=== PATIENT | male | born 1955 | race Hispanic/Latino ===

== ENCOUNTER → 2020-01-27 | Outpatient (CLI) | payer MEDICARE, OTHER ==
--- NOTE | 2020-01-27 14:26 | Diagnostic Imaging Report ---
EXAM: Right upper quadrant abdominal ultrasound INDICATION: Alcoholic cirrhosis of the liver with ascites. COMPARISON: None. TECHNIQUE: Transverse and longitudinal images of the right upper quadrant abdomen were obtained FINDINGS: Liver: Size: 14.4 cm in the right midclavicular line, normal Appearance: Nodular contour to the liver. Mass: No focal masses Gallbladder: Cholelithiasis. No distention, pericholecystic fluid, wall thickening, or reported sonographic Kuhn's sign. Gallbladder wall measures 0.3 cm. Bile Ducts: Intrahepatic Ducts: No dilatation Extrahepatic Ducts: Common bile duct measures 0.3 cm, no dilatation Pancreas: Limited evaluation. Kidney: The right kidney measures 10.9 cm without evidence of hydronephrosis or stone. Vessels: Aorta: Limited evaluation. Inferior Vena Cava: Limited evaluation. Main Portal Vein: 0.9 cm, normal size with hepatopetal flow. Free Fluid: Moderate to large volume ascites. IMPRESSION: Cirrhotic liver with moderate to large volume ascites. Cholelithiasis without evidence of cholecystitis. Signed by: Dr. Gordo Kelly MD on 01/27/2020 2:22 PM
== END ==
LOC: US 13:14
PROVIDERS: ATTEND Family Medicine
DX: K70.31 Alcoholic cirrhosis of liver with ascites (principal)
CPT/HCPCS: 76705

== ENCOUNTER → 2020-02-02 | Outpatient (CLI) | payer MEDICARE, OTHER ==
[~2020-02-02] MED LIST: ALBUMIN 25% 12.5GM 50ML 150 ML IV ONE; ALBUMIN 25% 12.5GM 50ML 50 ML IV ONE; IOPAMIDOL 370 MG/ML 200 ML INFUS..BTL INJ ONE; SODIUM CHLORIDE 0.9% 50ML 50 ML ONE
[2020-02-02 13:11] LABS: HEMOGLOBIN 17.3 g/dL (14.0-18.0)
[2020-02-02 13:23] LABS: INR 0.97; PROTHROMBIN TIME 13.4 seconds (11.9-14.5)
[2020-02-02 13:24] LABS: PARTIAL THROMBOPLASTIN TIME 34.6 seconds (23.8-35.5)
[2020-02-02 14:08] LABS: CREATININE, SERUM 1.39 mg/dL (0.72-1.25)
[2020-02-02 14:47] LABS: BODY FLUID APPEARANCE CLOUDY; BODY FLUID COLOR STRAW; BODY FLUID TYPE PERITONEAL
--- NOTE | 2020-02-02 14:49 | Diagnostic Imaging Report ---
HISTORY : Symptomatic ascites. Technique/findings: Informed written consent was obtained. Discussion of risks, benefits, and alternatives were made with the patient. The patient expressed understanding and agreed to proceed. A universal timeout was performed prior to starting the procedure. Initial ultrasound images demonstrate large volume of ascites. A pocket of fluid was identified in the left lower quadrant of the abdomen. This area was marked. The area was prepped and draped in the usual sterile fashion. 1% lidocaine was applied to the skin and deep soft tissues. Color ultrasound was used to assess for any vessels within the vicinity of the planned trajectory of the one-step, a image was saved. A 5 Italian one-step catheter was inserted and removed from the peritoneal space and approximately 7.3 liters of clear yellow ascitic fluid was aspirated from the abdomen. Specimens were collected for the lab. There were no immediate complications. Impression: Successful ultrasound guided paracentesis with aspiration of 7.3 liters of fluid. Signed by: Micheal Lowery MD on 02/02/2020 2:46 PM
[2020-02-02 15:20] LABS: RBC,BODY FLUID 149 cells/uL; WBC,BODY FLUID 56 cells/uL
[2020-02-02 15:38] LABS: BASOPHILS,BODY FLUID 41 %; LYMPHOCYTES,BODY FLUID 41 %; MONO/MACROPHG,BODY FLUID 18 %; NEUTROPHILS,BODY FLUID 0 %
--- NOTE | 2020-02-02 15:39 | Diagnostic Imaging Report ---
CT of the abdomen and pelvis with contrast TECHNIQUE: CT of the abdomen and pelvis WITH intravenous contrast and WITHOUT oral contrast. Dose modulation, iterative reconstruction, and/or weight-based adjustment of the mA/kV was utilized to reduce the radiation dose to as low as reasonably achievable. IV CONTRAST: 100 mL of Isovue-370 ORAL CONTRAST: None RADIATION DOSE: Total DLP: 288 mGy*cm COMPLICATIONS: None INDICATION: ^[id number] ^1430 ^ALCOHOLIC CIRRHOSIS OF LIVER. COMPARISON: None. FINDINGS: LOWER THORAX: Partially visualized right chest demonstrates a large right pleural effusion with collapse and atelectasis of the right lower lobe and right middle lobe. Left lung base is clear. HEPATOBILIARY: No focal hepatic lesions. Cirrhotic liver morphology is noted with nodular contours and hypertrophy of the left hepatic lobe. Gallbladder contains cholesterol stones. Negative for distention or wall thickening. No biliary ductal dilatation. Main portal vein and right and left portal veins are patent. Hepatic veins are patent. SPLEEN: No splenomegaly. PANCREAS: No focal masses or ductal dilatation. ADRENALS: Right adrenal gland is unremarkable. A fat-containing left adrenal gland lesion is noted measuring approximately 8.5 x 6.6 cm. KIDNEYS/URETERS: No hydronephrosis, stones, or masses. PELVIC ORGANS/BLADDER: Urinary bladder is decompressed. Prostate is within normal limits for size. PERITONEUM/RETROPERITONEUM: Trace residual free fluid is noted in the perihepatic space and upper abdomen. Negative for pneumoperitoneum. Left fat-containing inguinal hernia is noted. LYMPH NODES: No lymphadenopathy. VESSELS: Negative for abdominal aortic aneurysm. Moderate scattered calcified atherosclerotic changes of the abdominal aorta are noted. GI TRACT: Visualized bowel loops are not dilated. Stomach and colon are decompressed limiting evaluation. Negative for obstruction. Normal appendix is noted. BONES AND SOFT TISSUES: No acute osseous abnormality. Mild to moderate multilevel degenerative changes of the thoracolumbar spine are noted. No suspicious lytic or blastic lesion.. IMPRESSION: 1. Cirrhotic liver morphology with trace residual ascites. 2. 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 These findings were discussed with Ashtyn FABIAN who discussed with Dr. Saldivar. Patient had already left at that time however was asymptomatic without shortness of breath or chest pain. Patient to follow-up with referring practitioner for possible thoracentesis. 3. 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 Given size consider surgical consultation. 4. Cholelithiasis. 5. Fat-containing left inguinal hernia. Signed by: Micheal Lowery MD on 02/02/2020 3:36 PM
== END ==
LOC: US 12:47
PROVIDERS: ATTEND Internal Medicine Gastroenterology
DX: K70.30 Alcoholic cirrhosis of liver without ascites (principal)
CPT/HCPCS: 36415; 49083; 74177; 82565; 84520; 85014; 85049; 85610; 85730; 87070; 87205; 89051; Q9967; 88112; 88305

== ENCOUNTER → 2020-02-10 | Outpatient (CLI) | payer MEDICARE, OTHER ==
[~2020-02-10] MED LIST changes: +ALBUMIN 25% 12.5GM 50ML 0 ML IV ONE; -ALBUMIN 25% 12.5GM 50ML 150 ML IV ONE; -ALBUMIN 25% 12.5GM 50ML 50 ML IV ONE; -IOPAMIDOL 370 MG/ML 200 ML INFUS..BTL INJ ONE; -SODIUM CHLORIDE 0.9% 50ML 50 ML ONE
--- NOTE | 2020-02-10 12:37 | Diagnostic Imaging Report ---
ADDENDUM #1 ADDENDUM: In the body of the report: Instead of saying "negative for large effusion", it should say negative for large right pneumothorax. Signed by: Micheal Lowery MD on 02/10/2020 12:51 PM ORIGINAL REPORT TECHNIQUE: Frontal view of the chest. INDICATION: ^thoracentesis ^[id number] ^1215 COMPARISON: CT dated 02/02/2020. DISCUSSION: Limited evaluation due to portable technique. Lines and hardware: None Heart and mediastinum: Obscured. Thoracic aorta is mildly tortuous. Lungs and pleura: Complete opacification of the right hemithorax is again noted. Negative for large effusion. Left lung is grossly clear. Soft tissues and bones: No acute abnormality. IMPRESSION: 1. Negative for right pneumothorax. Near-complete opacification of the right hemithorax with a large right pleural effusion is noted. Signed by: Micheal Lowery MD on 02/10/2020 12:34 PM
--- NOTE | 2020-02-10 12:44 | Diagnostic Imaging Report ---
HISTORY : Symptomatic ascites. Technique/findings: Informed written consent was obtained. Discussion of risks, benefits, and alternatives were made with the patient. The patient expressed understanding and agreed to proceed. A universal timeout was performed prior to starting the procedure. Initial ultrasound images demonstrate moderate volume of ascites. A pocket of fluid was identified in the left lower quadrant of the abdomen. This area was marked. The area was prepped and draped in the usual sterile fashion. 1% lidocaine was applied to the skin and deep soft tissues. Color ultrasound was used to assess for any vessels within the vicinity of the planned trajectory of the one-step, a image was saved. A 5 Serbian one-step catheter was inserted and removed from the peritoneal space and approximately 3.1 liters of yellow ascitic fluid was aspirated from the abdomen. Specimens were collected for the lab. There was a small soft tissue hematoma at the access site. Manual pressure was held for about 10 minutes. No further bleeding was noted. Impression: Successful ultrasound guided paracentesis with aspiration of 3.1 liters of fluid. Signed by: Micheal Lowery MD on 02/10/2020 12:40 PM
--- NOTE | 2020-02-10 12:45 | Diagnostic Imaging Report ---
Ultrasound guided right thoracentesis. Clinical History: Right large pleural effusion. Modality: Ultrasound. Sedation: None. Creping Machine Operator: Micheal Lowery M.D. Custody Officer: None. Estimated Blood Loss: 1cc Specimen: 650 cc of [ fluid. Technique: Informed consent was obtained. The risks of pain, bleeding, infection, lung collapse/pneumothorax, injury to adjacent structures, and adverse medication reactions were discussed with the patient. The patient's right hemithorax was scanned from the back, with the patient in a sitting position. After the largest fluid pocket area was marked, the skin was prepped and draped in the usual sterile manner. The area was anesthetized with 1% lidocaine, a 5 F one-step catheter was advanced into the pleural space under ultrasound guidance. After completion of drainage, the catheter was removed. There was no evidence of immediate complication. Post procedure chest x-ray is negative for pneumothorax. Patient disposition: Patient was discharged from the ultrasound department after the thoracentesis in good condition. Impression: Successful and uncomplicated ultrasound guided right thoracentesis. Samples sent for laboratory analysis. The effusion is likely chronic given the dark appearance and surrounding thick wall. Signed by: Micheal Lowery MD on 02/10/2020 12:42 PM
[2020-02-10 14:50] LABS: RBC,BODY FLUID 149 cells/uL; WBC,BODY FLUID 81 cells/uL
[2020-02-10 14:58] LABS: BODY FLUID APPEARANCE SL.CLOUDY; BODY FLUID COLOR YELLOW; BODY FLUID TYPE PERITONEAL
[2020-02-10 15:17] LABS: LYMPHOCYTES,BODY FLUID 68 %; MONO/MACROPHG,BODY FLUID 27 %; OTHER CELLS,BODY FLUID 5 %
[2020-02-11 12:05] LABS: BODY FLUID TYPE BF
[2020-02-11 12:06] LABS: BODY FLUID APPEARANCE TURBID; BODY FLUID COLOR RED
[2020-02-11 12:08] LABS: RBC,BODY FLUID 248 cells/uL; WBC,BODY FLUID 594 cells/uL
[2020-02-11 12:16] LABS: LYMPHOCYTES,BODY FLUID 34 %; MONO/MACROPHG,BODY FLUID 15 %; OTHER CELLS,BODY FLUID 100 %
== END ==
LOC: US 10:08
PROVIDERS: ATTEND Internal Medicine Gastroenterology
DX: K70.30 Alcoholic cirrhosis of liver without ascites (principal)
CPT/HCPCS: 32555; 36415; 49083; 71045; 87070; 87205; 88305; 89051

== ENCOUNTER 2020-02-14 05:33 | Inpatient (IN) | payer MEDICARE, OTHER ==
[2020-02-14] VITALS (7 sets, daily range): BP systolic 80–105; BP diastolic 52–68
[~2020-02-14] VITALS: Ht 172.7 cm; Wt 62.7 kg
[2020-02-14] MEDS ORDERED: SODIUM CHLORIDE 0.9% 1000ML 1,000 ML ONE (06:00)
[2020-02-14] MEDS ORDERED: PIPER-TAZ 3.375 GM 50 ML IV ONE (06:15)
[2020-02-14] MEDS ORDERED: SODIUM CHLORIDE 0.9% 1000ML 1,000 ML IV ONE ×2 (06:15)
[2020-02-14 06:47] LABS: BASOPHILS % 0.4 % (0.0-1.0); EOSINOPHILS % 0.1 % (0.0-6.0); HEMATOCRIT 47.5 % (38.2-49.6); HEMOGLOBIN 15.7 g/dL (14.0-18.0); LYMPHOCYTES # (AUTO) 0.6 (1.0-3.2); LYMPHOCYTES % 6.1 % (18.0-39.1); MEAN CORPUSCULAR HEMOGLOBIN 31.4 pg (28-32); MEAN CORPUSCULAR HGB CONC 33.1 g/dL (31-35); MONOCYTES # (AUTO) 1.1 (0.2-0.8); NEUTROPHILS # (AUTO) 8.7 (2.1-6.9); NEUTROPHILS % 83.1 % (38.7-80.0); PLATELET COUNT 393 x10e3/uL (140-360); RED CELL DISTRIBUTION WIDTH 12.5 % (11.7-14.4)
[2020-02-14 07:11] LABS: ALBUMIN 1.9 g/dL (3.5-5.0); ALBUMIN/GLOBULIN RATIO 0.6 (0.8-2.0); ANION GAP 18.6 mmol/L (8-16); CALCIUM 7.5 mg/dL (8.4-10.2); CREATININE, SERUM 2.07 mg/dL (0.72-1.25); POTASSIUM 3.6 mmol/L (3.5-5.1)
[2020-02-14 07:18] LABS: CREATINE KINASE MB 0.2 ng/mL (0-5.0)
[2020-02-14] MEDS ORDERED: IOPAMIDOL 370 MG/ML 200 ML INFUS..BTL INJ ONE (07:34)
[2020-02-14] MEDS ORDERED: SODIUM CHLORIDE 0.9% 50ML 50 ML ONE (07:34)
[2020-02-14 07:35] LABS: AMYLASE 56 U/L (25-125); LIPASE 5 U/L (8-78)
[2020-02-14] MEDS ORDERED: NOREPINEPHRINE INJ 4MG/4ML 8 MG in DEXTROSE 5% 250ML 250 ML IV STA (08:03)
[2020-02-14] MEDS ORDERED: NOREPINEPHRINE 8 MG/D5W 250 ML 250 ML ONE (08:12)
[2020-02-14] MEDS ORDERED: ALBUMIN 25% 12.5GM 50ML 100 ML IV ONE (08:43)
[2020-02-14] MEDS ORDERED: ALBUMIN 25% 12.5GM 0.25 GM/ML BTL IV ONE (08:45)
[2020-02-14 08:55] LABS: INR 1.12
[2020-02-14 08:56] LABS: PARTIAL THROMBOPLASTIN TIME 33.3 seconds (23.8-35.5)
[2020-02-14] MEDS ORDERED: CEFTRIAXONE SOD 1 GM/NS 50 ML 50 ML IV SCH (09:00)
[2020-02-14] MEDS ORDERED: ALBUMIN 25% 25GM 100ML 0.25 GM/ML BTL IV SCH (09:00)
[2020-02-14] MEDS: OCTREOTIDE ACETATE 500 MCG in SODIUM CHLORIDE 0.9% 250ML 249 ML IV SCH ×2 (10:25→12:46)
[2020-02-14] MEDS: PANTOPRAZOLE 40 MG 10ML VIAL IV SCH (10:25)
[2020-02-14] MEDS ORDERED: ALBUMIN 5% 250ML 500 ML IV ONE (12:15)
[2020-02-14 14:37] LABS: CREATINE KINASE MB 2.3 ng/mL (0-5.0)
[2020-02-14 15:02] LABS: BODY FLUID APPEARANCE TURBID; BODY FLUID COLOR RED; BODY FLUID TYPE PLEURAL
[2020-02-14 15:03] LABS: RBC,BODY FLUID 164142 cells/uL; WBC,BODY FLUID 18612 cells/uL
[2020-02-14 16:13] LABS: LYMPHOCYTES,BODY FLUID 27 %; MONO/MACROPHG,BODY FLUID 18 %; NEUTROPHILS,BODY FLUID 55 %
[2020-02-14 16:44] LABS: BASOPHILS % 0.2 % (0.0-1.0); HEMOGLOBIN 14.6 g/dL (14.0-18.0); LYMPHOCYTES # (AUTO) 0.4 (1.0-3.2); LYMPHOCYTES % 3.3 % (18.0-39.1); MEAN CORPUSCULAR HEMOGLOBIN 31.4 pg (28-32); MEAN CORPUSCULAR VOLUME 92.5 fL (81-99); MONOCYTES % 7.9 % (4.4-11.3); NEUTROPHILS # (AUTO) 11.1 (2.1-6.9); NEUTROPHILS % 88.3 % (38.7-80.0); PLATELET COUNT 319 x10e3/uL (140-360); RED BLOOD COUNT 4.65 x10e6/uL (4.3-5.7); RED CELL DISTRIBUTION WIDTH 12.8 % (11.7-14.4)
[2020-02-14] MEDS: ALBUMIN 25% 12.5GM 50ML 50 ML IV SCH (17:57)
[2020-02-14] MEDS: PIPERACILLIN/TAZO 2.25 GM 50 ML IV SCH (19:10)
[2020-02-14 20:12] LABS: BASOPHILS # (AUTO) 0.1 (0.0-0.1); BASOPHILS % 0.3 % (0.0-1.0); EOSINOPHILS # (AUTO) 0.1 (0.0-0.4); EOSINOPHILS % 0.6 % (0.0-6.0); HEMATOCRIT 42.7 % (38.2-49.6); HEMOGLOBIN 14.4 g/dL (14.0-18.0); LYMPHOCYTES # (AUTO) 0.4 (1.0-3.2); LYMPHOCYTES % 2.9 % (18.0-39.1); MEAN CORPUSCULAR HEMOGLOBIN 31.1 pg (28-32); MEAN CORPUSCULAR HGB CONC 33.7 g/dL (31-35); MEAN CORPUSCULAR VOLUME 92.2 fL (81-99); MONOCYTES # (AUTO) 1.1 (0.2-0.8); MONOCYTES % 7.7 % (4.4-11.3); NEUTROPHILS # (AUTO) 12.8 (2.1-6.9); PLATELET COUNT 340 x10e3/uL (140-360); RED BLOOD COUNT 4.63 x10e6/uL (4.3-5.7); RED CELL DISTRIBUTION WIDTH 12.9 % (11.7-14.4)
[2020-02-14] MEDS: VASOPRESSIN 60 UNIT in DEXTROSE 5% 50ML 57 ML IV PRN (20:20)
[2020-02-14 20:40] LABS: PLATELET ESTIMATE ADEQUATE; PLATELET MORPHOLOGY COMMENT NORMAL; RBC MORPHOLOGY COMMENT NORMAL
[2020-02-14] MEDS ORDERED: ALBUMIN 5% 0.05 GM/ML BTL IV ONE (21:15)
[2020-02-14] MEDS ORDERED: DIPHENOXYLATE/ATROPINE TAB PO ONE (23:30)
[2020-02-15] VITALS (16 sets, daily range): BP systolic 92–119; BP diastolic 67–86
[2020-02-15] MEDS: METOCLOPRAMIDE HCL 10 MG/2ML VIAL IV SCH ×4 (00:10→18:20)
[2020-02-15] MEDS: PIPERACILLIN/TAZO 2.25 GM 50 ML IV SCH ×3 (02:11→18:20)
[2020-02-15 03:31] LABS: BASOPHILS # (AUTO) 0.1 (0.0-0.1); BASOPHILS % 0.4 % (0.0-1.0); EOSINOPHILS % 0.1 % (0.0-6.0); HEMATOCRIT 37.5 % (38.2-49.6); HEMOGLOBIN 12.7 g/dL (14.0-18.0); LYMPHOCYTES # (AUTO) 0.5 (1.0-3.2); MEAN CORPUSCULAR HEMOGLOBIN 31.5 pg (28-32); MEAN CORPUSCULAR HGB CONC 33.9 g/dL (31-35); MEAN CORPUSCULAR VOLUME 93.1 fL (81-99); MONOCYTES # (AUTO) 1.1 (0.2-0.8); MONOCYTES % 6.8 % (4.4-11.3); NEUTROPHILS # (AUTO) 14.5 (2.1-6.9); NEUTROPHILS % 87.9 % (38.7-80.0); PLATELET COUNT 278 x10e3/uL (140-360); RED BLOOD COUNT 4.03 x10e6/uL (4.3-5.7); RED CELL DISTRIBUTION WIDTH 12.9 % (11.7-14.4)
[2020-02-15 03:34] LABS: BILIRUBIN,URINE SMALL (NEGATIVE); CLARITY,URINE CLOUDY (CLEAR); COLOR,URINE YELLOW (YELLOW); KETONES,URINE TRACE (NEGATIVE); LEUKOCYTE ESTERASE ,URINE NEGATIVE (NEGATIVE); NITRITE,URINE NEGATIVE (NEGATIVE); PROTEIN,URINE DIPSTICK >=300 (NEGATIVE); URINE UROBILINOGEN 1 mg/dL (0.2 - 1)
[2020-02-15 03:38] LABS: AMORPHOUS SEDIMENT,URINE MANY (FEW); BACTERIA,URINE FEW /HPF; EPITHELIAL CELLS,URINE FEW /LPF
[2020-02-15 03:55] LABS: CREATINE KINASE MB 19.1 ng/mL (0-5.0)
[2020-02-15] MEDS: MELATONIN 3 MG TAB PO SCH ×2 (04:06→21:00)
[2020-02-15 04:08] LABS: ALBUMIN 2.7 g/dL (3.5-5.0); ALBUMIN/GLOBULIN RATIO 1.2 (0.8-2.0); ANION GAP 20.5 mmol/L (8-16); CREATININE, SERUM 2.81 mg/dL (0.72-1.25); POTASSIUM 3.5 mmol/L (3.5-5.1)
[2020-02-15 04:10] LABS: CALCIUM 6.8 mg/dL (8.4-10.2)
[2020-02-15] MEDS ORDERED: METRONIDAZOLE 500MG/NS 100ML 100 ML IV STA (04:14)
[2020-02-15] MEDS ORDERED: CALCIUM GLUCONATE 10% INJ 4.65 MEQ in SODIUM CHLORIDE 0.9% 50ML 50 ML IV ONE (05:15)
[2020-02-15] MEDS ORDERED: DEXTROSE 50% SYRINGE 50 ML IV ONE ×2 (06:00→06:02)
[2020-02-15] MEDS: ALBUMIN 25% 12.5GM 50ML 50 ML IV SCH ×4 (06:10→18:20)
[2020-02-15] MEDS: CEFTRIAXONE SOD 1 GM/NS 50 ML 50 ML IV SCH (08:13)
[2020-02-15] MEDS: PANTOPRAZOLE 40 MG 10ML VIAL IV SCH (08:13)
[2020-02-15] MEDS ORDERED: BUMETANIDE INJ 0.25MG/ML 4ML VIAL IV ONE (10:45)
[2020-02-15] MEDS: SODIUM BICARBONATE 8.4% 150 ML in STERILE WATER IV SOLN 1,000 ML IV SCH (11:15)
[2020-02-15] MEDS: METRONIDAZOLE 500MG/NS 100ML 100 ML IV SCH ×3 (11:59→23:04)
[2020-02-15 14:16] LABS: CREATININE,URINE RANDOM 106.91 mg/dL (63-166)
[2020-02-15 14:18] LABS: SODIUM,URINE < 20 mmol/L
[2020-02-15] MEDS ORDERED: ALBUMIN 25% 12.5GM 50ML 100 ML IV ONE (14:57)
[2020-02-15] MEDS ORDERED: ALBUMIN 5% 0.05 GM/ML BTL IV ONE (16:15)
[2020-02-15] MEDS ORDERED: ALBUMIN 5% 250ML 500 ML IV ONE (16:30)
[2020-02-15 17:42] LABS: BODY FLUID APPEARANCE CLOUDY; BODY FLUID COLOR YELLOW; BODY FLUID TYPE PERITONEAL
[2020-02-15 17:43] LABS: RBC,BODY FLUID 2594 cells/uL; WBC,BODY FLUID 4663 cells/uL
[2020-02-15 17:46] LABS: LYMPHOCYTES,BODY FLUID 6 %; MONO/MACROPHG,BODY FLUID 7 %; NEUTROPHILS,BODY FLUID 87 %
[2020-02-15] MEDS ORDERED: SODIUM CHLORIDE 0.9% 1000ML 1,000 ML IV ONE (18:45)
[2020-02-15 18:50] LABS: BASOPHILS # (AUTO) 0.1 (0.0-0.1); BASOPHILS % 0.4 % (0.0-1.0); EOSINOPHILS % 0.2 % (0.0-6.0); HEMATOCRIT 38.7 % (38.2-49.6); HEMOGLOBIN 13.1 g/dL (14.0-18.0); LYMPHOCYTES # (AUTO) 0.3 (1.0-3.2); LYMPHOCYTES % 1.7 % (18.0-39.1); MEAN CORPUSCULAR HEMOGLOBIN 30.7 pg (28-32); MEAN CORPUSCULAR HGB CONC 33.9 g/dL (31-35); MEAN CORPUSCULAR VOLUME 90.6 fL (81-99); MONOCYTES # (AUTO) 1.1 (0.2-0.8); MONOCYTES % 5.7 % (4.4-11.3); NEUTROPHILS # (AUTO) 16.7 (2.1-6.9); NEUTROPHILS % 88.1 % (38.7-80.0); PLATELET COUNT 289 x10e3/uL (140-360); RED BLOOD COUNT 4.27 x10e6/uL (4.3-5.7)
[2020-02-15 19:10] LABS: ALBUMIN 3.1 g/dL (3.5-5.0); ALBUMIN/GLOBULIN RATIO 1.3 (0.8-2.0); CREATININE, SERUM 3.6 mg/dL (0.72-1.25)
[2020-02-15] MEDS: DEXTROSE 50% SYRINGE 50 ML IV PRN (19:26)
[2020-02-15] MEDS ORDERED: MIDODRINE 2.5 MG TAB PO SCH (23:00)
[2020-02-16] VITALS (25 sets, daily range): BP systolic 84–113; BP diastolic 59–88
[2020-02-16] MEDS: OCTREOTIDE ACETATE 500 MCG in SODIUM CHLORIDE 0.9% 250ML 249 ML IV SCH ×5 (00:04→23:27)
[2020-02-16] MEDS: METOCLOPRAMIDE HCL 10 MG/2ML VIAL IV SCH ×4 (00:04→16:44)
[2020-02-16] MEDS: ALBUMIN 25% 12.5GM 50ML 50 ML IV SCH ×3 (00:04→11:26)
[2020-02-16] MEDS ORDERED: MIDODRINE 2.5 MG TAB PO ONE (01:15)
[2020-02-16] MEDS: PIPERACILLIN/TAZO 2.25 GM 50 ML IV SCH ×2 (02:00→08:52)
[2020-02-16 02:15] LABS: BASOPHILS # (AUTO) 0.1 (0.0-0.1); BASOPHILS % 0.4 % (0.0-1.0); HEMATOCRIT 36.2 % (38.2-49.6); HEMOGLOBIN 12.6 g/dL (14.0-18.0); LYMPHOCYTES # (AUTO) 0.5 (1.0-3.2); LYMPHOCYTES % 2.3 % (18.0-39.1); MEAN CORPUSCULAR HEMOGLOBIN 31.4 pg (28-32); MEAN CORPUSCULAR HGB CONC 34.8 g/dL (31-35); MEAN CORPUSCULAR VOLUME 90.3 fL (81-99); MONOCYTES # (AUTO) 1.1 (0.2-0.8); MONOCYTES % 5.5 % (4.4-11.3); NEUTROPHILS # (AUTO) 18.4 (2.1-6.9); NEUTROPHILS % 91.2 % (38.7-80.0); PLATELET COUNT 261 x10e3/uL (140-360); RED BLOOD COUNT 4.01 x10e6/uL (4.3-5.7)
[2020-02-16 02:22] LABS: CALCIUM IONIZED 0.8 mmol/L (1.09-1.30)
[2020-02-16 02:34] LABS: ALBUMIN 3.1 g/dL (3.5-5.0); ALBUMIN/GLOBULIN RATIO 1.3 (0.8-2.0); CREATININE, SERUM 3.86 mg/dL (0.72-1.25)
[2020-02-16 02:37] LABS: CALCIUM 6.8 mg/dL (8.4-10.2)
[2020-02-16 02:47] LABS: MAGNESIUM 2.1 MG/DL (1.3-2.1); PHOSPHORUS 7.4 MG/DL (2.3-4.7)
[2020-02-16] MEDS: SODIUM BICARBONATE 8.4% 150 ML in STERILE WATER IV SOLN 1,000 ML IV SCH (04:00)
[2020-02-16] MEDS: METRONIDAZOLE 500MG/NS 100ML 100 ML IV SCH ×2 (04:50→11:28)
[2020-02-16] MEDS ORDERED: CALCIUM GLUCONATE 10% INJ 4.65 MEQ in SODIUM CHLORIDE 0.9% 50ML 50 ML IV ONE ×2 (06:00→11:15)
[2020-02-16] MEDS ORDERED: MIDODRINE 2.5 MG TAB PO SCH (08:00)
[2020-02-16] MEDS: MIDODRINE 2.5 MG TAB PO SCH ×3 (08:51→16:44)
[2020-02-16] MEDS: PANTOPRAZOLE 40 MG 10ML VIAL IV SCH (08:51)
[2020-02-16] MEDS: CEFTRIAXONE SOD 1 GM/NS 50 ML 50 ML IV SCH (08:52)
[2020-02-16] MEDS: DEXTROSE 50% SYRINGE 50 ML IV PRN (09:58)
[2020-02-16] MEDS ORDERED: DEXTROSE 5% 1,000 ML IV SCH (10:00)
[2020-02-16] MEDS ORDERED: ALBUMIN 5% 0.05 GM/ML BTL IV ONE (11:00)
[2020-02-16] MEDS: MEROPENEM 500MG/ NS 50ML 50 ML IV SCH (11:28)
[2020-02-16] MEDS ORDERED: ALBUMIN 5% 250ML 500 ML IV ONE (12:00)
[2020-02-16] MEDS: LINEZOLID 600 MG/D5W 300ML 300 ML IV SCH (12:45)
[2020-02-16] MEDS ORDERED: HEPARIN SOD (PORCINE) 1000 UNIT/ML SDV ONE ×2 (12:50→22:20)
[2020-02-16] MEDS: SODIUM BICARBONATE 8.4% SYRING 150 ML in DEXTROSE 5% 1,000 ML IV SCH (13:52)
[2020-02-16] MEDS ORDERED: LIDOCAINE HCL 1% LOCAL INJ 20 ML VIAL ONE (15:10)
[2020-02-16] MEDS ORDERED: BUMETANIDE INJ 0.25MG/ML 4ML VIAL IV ONE (16:30)
[2020-02-16] MEDS: VASOPRESSIN 60 UNIT in DEXTROSE 5% 50ML 57 ML IV PRN (20:00)
[2020-02-16] MEDS ORDERED: MANNITOL 25% 12.5GM/50ML 100 ML ONE (20:08)
[2020-02-16] MEDS: MELATONIN 3 MG TAB PO SCH (21:00)
[2020-02-17] VITALS (25 sets, daily range): BP systolic 54–138; BP diastolic 39–101
[2020-02-17] MEDS: METOCLOPRAMIDE HCL 10 MG/2ML VIAL IV SCH ×4 (00:28→18:12)
[2020-02-17] MEDS: MEROPENEM 500MG/ NS 50ML 50 ML IV SCH ×3 (00:28→21:00)
[2020-02-17] MEDS ORDERED: METRONIDAZOLE 750MG/NS 150ML 150 ML IV STA (01:12)
[2020-02-17 01:34] LABS: BASOPHILS # (AUTO) 0.2 (0.0-0.1); BASOPHILS % 0.9 % (0.0-1.0); EOSINOPHILS % 0.1 % (0.0-6.0); HEMATOCRIT 33.9 % (38.2-49.6); HEMOGLOBIN 11.7 g/dL (14.0-18.0); LYMPHOCYTES # (AUTO) 0.3 (1.0-3.2); LYMPHOCYTES % 1.1 % (18.0-39.1); MEAN CORPUSCULAR HEMOGLOBIN 31.8 pg (28-32); MEAN CORPUSCULAR HGB CONC 34.5 g/dL (31-35); MEAN CORPUSCULAR VOLUME 92.1 fL (81-99); MONOCYTES # (AUTO) 1.1 (0.2-0.8); MONOCYTES % 4.8 % (4.4-11.3); NEUTROPHILS # (AUTO) 20.4 (2.1-6.9); NEUTROPHILS % 92.4 % (38.7-80.0); PLATELET COUNT 195 x10e3/uL (140-360); RED BLOOD COUNT 3.68 x10e6/uL (4.3-5.7); RED CELL DISTRIBUTION WIDTH 13.2 % (11.7-14.4)
[2020-02-17] MEDS ORDERED: METRONIDAZOLE 500MG/NS 100ML 200 ML IV ONE (02:27)
[2020-02-17] MEDS: LINEZOLID 600 MG/D5W 300ML 300 ML IV SCH ×2 (02:30→13:35)
[2020-02-17 05:16] LABS: BASOPHILS # (AUTO) 0.1 (0.0-0.1); BASOPHILS % 0.2 % (0.0-1.0); HEMATOCRIT 33.3 % (38.2-49.6); HEMOGLOBIN 11.4 g/dL (14.0-18.0); LYMPHOCYTES # (AUTO) 0.3 (1.0-3.2); LYMPHOCYTES % 1.2 % (18.0-39.1); MEAN CORPUSCULAR HEMOGLOBIN 31.4 pg (28-32); MEAN CORPUSCULAR HGB CONC 34.2 g/dL (31-35); MEAN CORPUSCULAR VOLUME 91.7 fL (81-99); MONOCYTES # (AUTO) 1.2 (0.2-0.8); MONOCYTES % 5.4 % (4.4-11.3); NEUTROPHILS # (AUTO) 20.2 (2.1-6.9); NEUTROPHILS % 92.3 % (38.7-80.0); PLATELET COUNT 207 x10e3/uL (140-360); RED BLOOD COUNT 3.63 x10e6/uL (4.3-5.7); RED CELL DISTRIBUTION WIDTH 13.4 % (11.7-14.4)
[2020-02-17 05:28] LABS: ALBUMIN 3.1 g/dL (3.5-5.0); ALBUMIN/GLOBULIN RATIO 1.1 (0.8-2.0); ANION GAP 20.5 mmol/L (8-16); CALCIUM 7.2 mg/dL (8.4-10.2); CREATININE, SERUM 3.88 mg/dL (0.72-1.25); MAGNESIUM 2.2 MG/DL (1.3-2.1); PHOSPHORUS 5.7 MG/DL (2.3-4.7); POTASSIUM 3.5 mmol/L (3.5-5.1)
[2020-02-17] MEDS: METRONIDAZOLE 500MG/NS 100ML 100 ML IV SCH ×3 (07:53→18:12)
[2020-02-17] MEDS: MIDODRINE 2.5 MG TAB PO SCH ×3 (08:00→16:00)
[2020-02-17] MEDS ORDERED: ALBUMIN 25% 25GM 100ML 100 ML IV SCH (09:00)
[2020-02-17] MEDS ORDERED: ALBUMIN 25% 25GM 100ML 0.25 GM/ML BTL IV ONE (09:00)
[2020-02-17] MEDS ORDERED: ALBUMIN 25% 25GM 100ML 0.25 GM/ML BTL IV SCH (09:00)
[2020-02-17] MEDS: PANTOPRAZOLE 40 MG 10ML VIAL IV SCH (09:00)
[2020-02-17] MEDS ORDERED: HEPARIN SOD (PORCINE) 1000 UNIT/ML SDV IV PRN (10:15)
[2020-02-17] MEDS ORDERED: MANNITOL 25% 12.5GM/50 ML VIAL IV PRN (10:15)
[2020-02-17] MEDS ORDERED: SODIUM CHLORIDE 0.9% 1000ML 2,000 ML IV PRN (10:15)
[2020-02-17] MEDS ORDERED: ALBUMIN 25% 12.5GM 0.25 GM/ML BTL IV PRN (10:15)
[2020-02-17] MEDS: SODIUM BICARBONATE 8.4% SYRING 150 ML in DEXTROSE 5% 1,000 ML IV SCH (13:00)
[2020-02-17] MEDS ORDERED: ACETAMINOPHEN 1000 MG/100 ML IV STA (19:46)
[2020-02-17] MEDS: MELATONIN 3 MG TAB PO SCH (21:00)
[2020-02-18] VITALS: BP 57/42
[2020-02-18] MEDS ORDERED: METRONIDAZOLE 500MG/NS 100ML 100 ML IV SCH (02:00)
[2020-02-18] MEDS ORDERED: ALBUMIN 25% 25GM 100ML 100 ML IV SCH (09:00)
== END 2020-02-18 04:00 | disposition expired | DRG 871 ==
LOC: ER 05:54 → ERHOLD 08:09 → ICU 12:15
PROVIDERS: ADMIT Family Medicine; ATTEND Family Medicine
PROC: 0W993ZZ Drainage of Right Pleural Cavity, Percutaneous Approach (ICD-10-PCS; principal; 2020-02-14)
PROC: 0W9G3ZZ Drainage of Peritoneal Cavity, Percutaneous Approach (ICD-10-PCS; 2020-02-15)
PROC: 02HV33Z Insertion of Infusion Device into Superior Vena Cava, Percutaneous Approach (ICD-10-PCS; 2020-02-16)
PROC: 5A1D70Z Performance of Urinary Filtration, Intermittent, Less than 6 Hours Per Day (ICD-10-PCS; 2020-02-16)
DX: A41.9 Sepsis, unspecified organism (principal); G92 Toxic encephalopathy; J96.90 Respiratory failure, unspecified, unspecified whether with hypoxia or hypercapnia; R65.21 Severe sepsis with septic shock; K65.2 Spontaneous bacterial peritonitis; K76.7 Hepatorenal syndrome; J86.9 Pyothorax without fistula; N17.9 Acute kidney failure, unspecified; J90 Pleural effusion, not elsewhere classified; K76.6 Portal hypertension; E87.1 Hypo-osmolality and hyponatremia; N39.0 Urinary tract infection, site not specified; E44.0 Moderate protein-calorie malnutrition; N40.0 Benign prostatic hyperplasia without lower urinary tract symptoms; E83.51 Hypocalcemia; N40.1 Benign prostatic hyperplasia with lower urinary tract symptoms; R39.12 Poor urinary stream; K70.31 Alcoholic cirrhosis of liver with ascites; E16.2 Hypoglycemia, unspecified; I73.9 Peripheral vascular disease, unspecified
CPT/HCPCS: 32555; 36415; 36556; 49083; 71045; 71250; 74019; 74176; 74470; 76705; 76770; 76857; 76937; 77001; 80053; 81001; 82140; 82150; 82550; 82553; 82570; 82947; 82948; 83605; 83615; 83630; 83690; 83735; 83993; 84100; 84157; 84300; 84478; 84484; 85025; 85610; 85730; 86705; 86706; 87040; 87045; 87070; 87086; 87177; 87205; 87340; 87493; 88305; 89051; 90962; 93005; 93306; 93926; 94660; 99284; J0610; J0696; J1644; J2001; J2020; J2150; J2353; J2543; J2765; J7030; J7050; J7070; J7799; P9045; P9047; Q9967; U0002